=== PATIENT | male | born 1965 | race Two or more races ===

== ENCOUNTER 2025-06-06 08:53 | Emergency (ER) | payer BC, SELFPAY ==
[2025-06-06 09:02] VITALS: BP 150/101; PULSE 67; RESP 17; TEMP 36.7; O2SAT 96; BMI 29.5
[2025-06-06] MEDS: MG HYD/AL HYD/SIME (Maalox Reg) SUSP 30 ML UDC PO (09:32)
--- NOTE | 2025-06-06 10:39 | EDNOTE_ITS ---
ED Abdominal Pain RME/HPI General Chief Complaint: Abdominal Pain Stated complaint: Burning to upper abdomen, GUZMAN Time seen by provider: 06/06/25 08:59 Arrival date/time: 06/06/25 08:53 59-year-old male with no known medical history presents to the emergency room with a chief complaint of a burning sensation to his epigastric area x 1 month Source: patient Mode of arrival: ambulatory Limitations: no limitations Related Data Previous Rx's ?Medication ?Instructions ?Recorded Hydrocodone/Acetaminophen * (NORCO 1 tab PO Q4-6H PRN PAIN #20 tabs 05/09/15 10/325 *) carisoprodol 350 mg tablet 350 mg PO HS spasm #20 tabs 05/09/15 omeprazole 40 mg capsule,delayed 40 mg PO QDAY #30 cap s 06/06/25 release Allergies Allergy/AdvReac Type Severity Reaction Status Date / Time NKA* Allergy Uncoded 06/06/25 08:57 Review of Systems Review of Systems Systems Reviewed: All systems reviewed, normal except as documented Constitutional Constitutional: Reports system reviewed and no additional complaints, except as documented, Denies fatigue, Denies fever(s), Denies headache(s) and Denies weakness Eyes Eyes: Reports system reviewed and no additional complaints, except as documented, Denies blurry vision and Denies change in vision ENT Ears, Nose, Mouth, and Throat: Reports system reviewed and no additional complaints, except as documented, Denies otalgia, Denies headache(s), Denies nasal congestion, Denies throat swelling and Denies vertigo Cardiovascular Cardiovascular: Reports system reviewed and no additional complaints, except as documented, Denies chest pain, Denies dyspnea and Denies dyspnea on exertion Respiratory Respiratory: Reports system reviewed and no additional complaints, except as documented, Denies chest congestion, Denies cough, Denies dyspnea, Denies dyspnea on exertion and Denies wheezing Gastrointestinal Gastrointestinal: Reports system reviewed and no additional complaints, except as documented, Reports abdominal pain, Reports bloating, Reports cramping, Reports dyspepsia, Reports excessive flatus, Denies nausea and Denies vomiting Genitourinary Genitourinary: Reports system reviewed and no additional complaints, except as documented, Denies dysuria and Denies hematuria Musculoskeletal Musculoskeletal: Reports system reviewed and no additional complaints, except as documented and Denies back pain Integumentary/Breasts Skin/Breast: Reports system reviewed and no additional complaints, except as documented and Denies wounds Neurologic Neurologic: Reports system reviewed and no additional complaints, except as doc umented, Denies confusion, Denies headache(s), Denies lack of coordination, Denies vertigo and Denies weakness Psychiatric Psychiatric: Reports system reviewed and no additional complaints, except as documented, Denies anxiety, Denies confusion, Denies depression, Denies paranoia, Denies suicidal ideation and Denies tactile hallucinations Endocrine Endocrine: Reports system reviewed and no additional complaints, except as documented and Denies fatigue Hematologic/Lymphatic Hematologic/Lymphatic: Reports system reviewed and no additional complaints, except as documented and Denies lymphadenopathy Allergic/Immunologic Allergic/Immunologic: Reports system reviewed and no additional complaints, except as documented, Denies throat swelling, Denies urticaria and Denies wheezing ED Exam General Limitations: Present no limitations General appearance: Present alert and in no apparent distress Head Head exam: Present atraumatic Eye Eye exam: Present normal appearance, PERRL and EOMI ENT ENT exam: Present normal exam, normal oropharynx and mucous membranes moist Neck Neck exam: Present normal inspection, full ROM and trachea midline Chest Chest inspection: Present normal inspection and symmetric chest wall rise Respiratory Respiratory exam: Present normal lung sounds bilaterally Cardiovascular Cardiovascular exam: Present regular rate, normal rhythm and normal heart sounds Abdominal Exam Abdominal exam: Present soft, tenderness and normal bowel sounds; Absent Carr's sign or tenderness at McBurney's Point Abdominal tenderness: Present epigastrium and mild; Absent RUQ, RLQ, LUQ, LLQ or suprapubic Extremities Exam Extremities exam: Present normal inspection and full ROM Back Exam Back exam: Present normal inspection and full ROM Neurological Exam Neurological exam: Present alert, oriented X3 and CN II-XII intact Psychiatric Psychiatric exam: Present normal affect and normal mood Skin Skin exam: Present warm, dry, intact and normal color Course Quality Measures none Orders Category Date Time Status mg Hyd/Al Hyd/Joni Susp [Maalox Susp] Med 06/06/25 09:20 Discontinued 30 ml PO X1 ONE Vital Signs Vital signs: Vital Signs Temperature 98.1 F 06/06/25 09:02 Pulse Rate 67 06/06/25 09:02 Respiratory Rate 17 06/06/25 09:02 Blood Pressure 150/101 H 06/06/25 09:02 Pulse Oximetry (%) 96 06/06/25 09:02 Oxygen Delivery Method Room Air 06/06/25 09:02 Abdominal Pain MDM MDM Narrative MDM Narrative:: 59-year-old male with no known medical history presents to the emergency room with a chief complaint of a burning sensation to his epigastric area x 1 month Patient is hemodynamically stable and in no apparent distress Physical examination shows no right lower quadrant abdominal tenderness, no right upper quadrant abdominal tenderness. The patient has a negative Carr sign. The patient has tenderness to his epigastric area that has been going on for 1 month. Patient states is it is a 3 out of 10 in severity and states he feels very bloated. The findings are consistent with gastritis the patient was educated to follow-up with primary care provider and return to the emergency room for any evidence of worsening sign or symptom Patient data External records reviewed:: [facility] previous records Clinical information provided by:: patient Social determinants that could affect healthcare access:: none Patient has the following chronic illnesses:: No chronic illness How is presenting disease/condition affected by chronic disease/condition?: no chronic disease Evaluation data The following diagnostics were reviewed and interpreted by me:: lab results and radiology exam(s) Lab and/or radiology exams considered but not ordered:: Labs and radiology exams considered in order Interpretation Summary: N/A Medications / Prescriptions Medications or Prescriptions considered but not ordered:: Medication given Medication administrations:: Medication Administration History Discontinued Medications Al Hydrox/Mg Hydrox/Simethicone (Mg Hyd/Al Hyd/Joni (Maalox Reg) Susp 30 Ml Udc) 30 ml PO X1 ONE Stop: 06/06/25 09:21 Last Admin: 06/06/25 09:32 Dose: 30 ml Documented By: OA Medication given Consultations Consultation(s) initiated? (list below): No Diagnosis Differential diagnosis abdominal pain: abdominal pain, constipation, diverticulitis, gastroenteritis and other (Gastritis) Most likely diagnosis given after review of the tests above:: Gastritis Admission Indicated Admission indicated?: not indicated Admission Request Was there a request for admission?: No Disposition Plan Disposition Plan: Discharge Discharge Attestation Discharge Attestation: The patient and all family members were given an opportunity to ask questions and understood the discharge instructions. Discharge instructions specifically effects, indications for sooner follow up or return to the emergency department, and the expected course of current diagnosis. Patient condition: Stable Discharge Plan Plan Patient Disposition: HOME (Self Care) Discharge Disposition comment: stable Prescriptions/Referrals Prescriptions/Med Rec: New omeprazole 40 mg capsule,delayed release(DR/EC) 40 mg PO QDAY Qty: 30 0RF No Action carisoprodol 350 MG tablet 350 mg PO HS Qty: 20 0RF Hydrocodone/Acetaminophen * (NORCO 10/325 *) 1 TAB tablet 1 tab PO Q4-6H PRN (Reason: PAIN) Qty: 20 0RF Rx Instructions: FOR PAIN Problem List Clinical Impression: Gastritis Patient/Caregiver Discharge Instructions Education Materials: Treating Gastritis, Understanding Gastritis, ED Gastritis (Adult), ED PEPTIC ULCER vs GASTRITIS Additional Instructions: Please follow-up with your primary care provider in the next 24 to 48 hours Your symptoms are consistent with gastritis. Please follow-up with your primary care provider for further management. If your sinus symptoms continue and endoscopy might be indicated. For any evidence of worsening sign or symptom return to the emergency room im mediately Print Language: Citizen Of [place] Stand Alone Forms: [employer] Award Info., Work/School Release, Patient Portal Info Letter PA/LADLE POURER Supervising Physician PA/ELIJAH Supervising Physician: Dr. Linton
== END 2025-06-06 09:59 | disposition home or self-care (01) ==
LOC: SERX 09:46
PROVIDERS: Emergency Provider Family Medicine; PCP Internal Medicine
DX: K29.70 Gastritis, unspecified, without bleeding (principal)
CPT/HCPCS: 99283; A9270